=== PATIENT | male | born 1945 | race Caucasian/White ===

== ENCOUNTER 2016-11-27 01:05 | Inpatient (IN) | payer OTHER, MEDICARE ==
[~2016-11-27] VITALS: Ht 172.7 cm; Wt 80.7 kg
[~2016-11-27 01:05] MED LIST: CARDURA2 M1 PO; DULCOLAX5 M1 PO; FERROUS SULFAT325 M3 PO; FLOMAX0.4 M1 PO; FUROSEMIDE40 M1 PO; MIRTAZAPINE15 M2 PO; OMEPRAZOLE20 M2 PO; PERCOCET 10-321 EACH PO; REQUIP4 MG PO; SIMVASTATIN20 M2 PO; SPIRONOLACTONE25 M1 PO; TRAZODONE HCL50 M1 PO
--- NOTE | 2016-11-27 08:12 | Operative Report ---
Operative/Inv Procedure Report Surgery Date: 11/27/16 Name of Procedure: Right total knee arthroplasty Pre-Operative Diagnosis: Right knee primary osteoarthritis Post-Operative Diagnosis: Same Estimated Blood Loss: less than 50ml Surgeon/Population Health Manager: PHAN FREEMAN,Edenilson DE LA O Anesthesia: block Implants: Hortencia triathlon total knee system--size 4 femur, size 4 tibia, 11 mm cruciate retaining polyethylene, 29 patella Drains: None Specimens: Femoral, tibial, patellar bone Microbiology: Urine Tourniquet: 63 minutes Complications: None Condition: Stable Operative Indication: Patient is a 71-year-old man with a long history of right knee pain. He has severe symptoms. He has been diagnosed with severe end-stage osteoarthritis. He has severe patellofemoral disease and moderate medial and lateral tibiofemoral compartment disease. Conservative measures resulted in short-term improvement. Patient does spend a lot of time in the wheelchair due to the knee pain. He also has a history of a stroke. He states that after a cortisone injection he has significant relief to the point where he is able to walk. Since normal conservative measures were not providing significant relief he wanted to consider total knee arthroplasty. We discussed risks, benefits and expectations of the surgical procedure which included but were not limited to persistent knee pain, stiffness, need for subsequent surgery, infection, DVT, injury to blood vessel or nerve, anesthesia risks. He wished to proceed with surgical management. Patient does have a flexion contracture and is somewhat higher risk for nerve injury and this was explained. He also has a history of alcohol use but states that he does not have to drink every day. I did explain to him that this places him at somewhat higher risk for infection and other medical complications. he wish to proceed with total knee arthroplasty Operative/Procedure Note Note: Patient was brought to the operating room and transferred to the operating table. Once under appropriate anesthesia the right lower extremity was prepped and draped in standard fashion. Preoperative IV antibiotics were given prophylactically. Right lower extremity was elevated exsanguinated and tourniquet was inflated to 300 millimeters of pressure. Standard anterior incision was made for anticipated medial parapatellar approach. Incision was taken down sharply to the underlying retinaculum. The medial retinaculum was incised with a minimal extension into the quadriceps tendon. Osteophyte formations were noted in the patellofemoral compartment medial and lateral compartments. Osteophytes were excised. Patella was subluxed knee was flexed. Remnants of the anterior medial and lateral meniscal tissues were excised. Portion of the fat pad was excised to maximize visualization of the lateral compartment. ACL was excised. The drill was used to enter the intramedullary canal. The intramedullary femoral guide was impacted in place and the cutting block was pinned in position for 6 valgus cut. This cut was made. Soft tissues were protected. The femur was incised was size 4. Size 4 cuts were made while protecting the soft tissues. I then turned my attention to the tibia. The external tibial alignment guide was placed for a neutral cut from medial to lateral and reproducing patient's posterior slow-paced on preoperative templating and intraoperative findings. While the posterior soft tissues were protected with the PCL retractor the retractors placed medially and laterally. Tibial cut was made. Tibia was sized to a size 4. Trial components were inserted and the knee was taken through range of motion. Patella was then measured and the appropriate thickness was removed and restored with a 29 mm patella. Patellar tracking was noted to be tilted and slightly lateral this was expected based on patient's preoperative findings as well. A lateral release was performed from an extra articular side. I was satisfied with patellar femoral tracking after this release was completed. All trial component was removed. The tibia was completed with the tibial punch with the appropriate rotation which was previously marked. The 2 lug holes were drilled in the femur and then copious irrigation followed. Cement was being mixed on the back table. Once the cement was ready was applied to the dry clean bony surfaces of the tibia. The size 4 tibial component was impacted in place and excess cement was removed with curettes. Some was applied to the dry clean bony surfaces of the femur. The size 4 femoral component was impacted in place and excess cement was removed with curettes. An insert was applied and taken knee was taken out to full extension. Cement was applied to the dry clean bony surfaces of the patella. The size 29 patella was impacted in place and the excess cement was removed with a knife. As cement was drying and hardening I did appear articular pericapsular injection of ropivacaine with epinephrine and Toradol for postoperative pain and inflammation management. Once cement was hardening took the knee through range of motion. I was satisfied with the 11 mm cruciate retaining polyethylene insert. I removed the trial copious irrigation the tibial tray followed. I then inserted the definitive size 11 mm cruciate retaining polyethylene and the locking mechanism was confirmed. I made sure there was no soft tissue interpositioning. Knee was taken through range of motion. I was satisfied with the full extension. Mid flexion stability was very good. Full flexion to gravity. Copious irrigation followed tourniquet was deflated at 63 minutes. Hemostasis was obtained. I then every level of closure was followed by copious irrigation. The retinaculum and medial extension the quadriceps was closed with interrupted #1 Vicryl sutures. Subcutaneous tissues closed in 2 layers with 2-0 Vicryl and skin was closed running 3-0 Vicryl suture with the knee in flexion. Progestins were applied and patient was awakened and taken to recovery room in good condition. No intraoperative complications. Blood loss was approximately 50 mL Discharge Disposition: PACU
[2016-11-27 11:54] VITALS: BP 136/66
--- NOTE | 2016-11-27 13:46 | PN- Orthopedic ---
Subjective Subjective: POST-OP NOTE: No complaints. Currently getting out of bed with PT. Denies dizziness. No shortness of breath. No chest pains. Objective Vital Signs and I&Os Vital Signs Date Time Temp Pulse Resp B/P Pulse O2 O2 Flow FiO2 Ox Delivery Rate 11/27 1154 97.3 63 18 136/66 94 Room Air Intake & Output 11/27 1600 11/27 0800 11/27 0000 11/26 1600 11/26 0800 11/26 0000 Intake Total Output Total Balance Patient 178 lb Weight Physical Exam: General - alert & oriented x 3. comfortable. no acute distress. Lungs - clear bilaterally. no w/r/r. Cardiac - s1s2. reg. Abdomen - soft. nontender. Extremities - warm bilaterally. right leg dressing c/d/i. nvi. calves soft and nontender b/l. on q in place. Assessment/Plan Assessment/Plan This 71 year old white male with hx RLS, hx cva with right sided weakness, htn, hld, depression, hx lymes dz, is now POD#0 s/p right knee replacement for primary osteoarthritis advance diet as tolerated pain control as needed on q in place until POD#2 dressing change POD#2 abraham-operative vancomycin PT eval - already getting out of bed bowel regime ordered marshall to remain overnight, to be removed in the morning home meds appear to all be ordered f/u am labs d/c planning 2-3 days will d/w Core Measures/Miscellaneous Venous Thromboembolism VTE Risk Factors: Age > 40, Surgery VTE Contraindications: No Contraindications VTE Diagnosis: No Beta Moris Is Beta Moris a Home Med? No Antibiotics Is Patient on Antibiotics? Yes If Yes: prophylaxis
[2016-11-27 14:28] VITALS: BP 102/56
[2016-11-27 15:50] VITALS: BP 132/68
[2016-11-27 17:38] VITALS: BP 136/80
[2016-11-27 19:46] VITALS: BP 143/74
[2016-11-27 22:13] VITALS: BP 142/84
[2016-11-28 02:04] VITALS: BP 142/79
[2016-11-28 06:25] VITALS: BP 140/74
[2016-11-28 08:22] LABS: MEAN CORPUSCULAR HGB 30.7 PG (27.0-31.0); MEAN CORPUSCULAR HGB CONC 34.3 G/DL (33.0-37.0); MEAN CORPUSCULAR VOLUME 89.4 FL (80.0-94.0); MEAN PLATELET VOLUME 9.1 FL (7.4-10.4); PLATELET COUNT 185 /CUMM (130-400); RBC DISTRIBUTION WIDTH 12.7 % (11.5-14.5); RED BLOOD CELL CT 3.92 /CUMM (4.70-6.10); WHITE BLOOD CELL COUNT 10.5 /CUMM (4.8-10.8)
--- NOTE | 2016-11-28 08:22 | PN- Orthopedic ---
ANGEL GOMEZ 11/28/16 0816: Subjective Subjective: No overnight events. Continues to have postoperative knee pain. He reports that the pain is minimally controlled and requesting for a muscle relaxant. No nausea vomiting. Tolerating diet. Was able to work with physical therapy. Objective Vital Signs and I&Os Vital Signs Date Time Temp Pulse Resp B/P Pulse O2 O2 Flow FiO2 Ox Delivery Rate 11/28 0653 98.3 11/28 0625 99.0 76 20 140/74 95 11/28 0204 98.1 71 20 142/79 95 Room Air 11/27 2213 97.9 78 20 142/84 96 Room Air 11/27 1946 97.8 78 22 143/74 95 Room Air 11/27 1738 97.9 72 18 136/80 97 Room Air 11/27 1550 97.9 73 20 132/68 95 Room Air 11/27 1428 98.8 80 20 102/56 94 11/27 1154 97.3 63 18 136/66 94 Room Air Intake & Output 11/28 1600 11/28 0800 11/28 0000 11/27 1600 11/27 0800 11/27 0000 Intake Total 100 1800 Output Total 1800 1000 1350 Balance -1700 -1000 450 Intake, IV 1500 Intake, Oral 100 300 Output, Urine 1800 1000 1350 Patient 178 lb Weight Urine culture urine culture pending. Physical Exam: None apparent distress, alert oriented 3 resting and chair. Lung sounds clear to auscultate auscultated bilaterally. No additional sounds appreciated. Abdomen is soft ,nondistended, no rebound or guarding. Extremity: Right knee postoperative site is clean dry and intact with dressing .Above the knee the ON -q PUMP catheter in place. Right lower extremity palpable pulses are present. Current Medications: Current Medications Sig/Reina Start time Last Medication Dose Route Stop Time Status Admin Atorvastatin Calcium 10 MG 1700 11/27 1700 AC 11/27 PO 1617 Dextrose/Lactated 1,000 ML Q13H 11/27 1200 AC 11/28 Ringer's IV 0308 Diazepam 5 MG TID PRN 11/28 0030 AC 11/28 PO 0651 Docusate Sodium 100 MG BID 11/27 2200 AC 11/27 PO 2204 Docusate Sodium 100 MG DAILY NEEDED PRN 11/27 1200 DC PO Doxazosin Mesylate 2 MG QPM 11/27 2199 AC 11/27 PO 2204 Ferrous Sulfate 325 MG DAILY 11/28 1000 AC PO Furosemide 40 MG BID 11/27 2200 AC 11/27 PO 2204 Influenza Virus 0.5 ML ONCE ONE 11/27 1300 DC 11/27 Vaccine IM 11/27 1301 1617 Mirtazapine 15 MG QPM 11/27 2200 AC 11/27 PO 2204 Morphine Sulfate 2 MG Q3P PRN 11/27 1200 AC 11/28 IV 0308 Morphine Sulfate 4 MG Q3P PRN 11/27 1200 DC IV Omeprazole 20 MG DAILY 11/28 1000 AC PO Ondansetron HCl 4 MG Q6P PRN 11/27 1200 AC IV Oxycodone/ 1 TAB Q4P PRN 11/27 1200 AC Acetaminophen PO Oxycodone/ 2 TAB Q4P PRN 11/27 1200 AC 11/28 Acetaminophen PO 0651 Polyethylene Glycol 17 GM DAILY NEEDED PRN 11/27 1200 AC 11/27 PO 2204 Ropinirole HCl 1 MG AT BEDTIME 11/27 2200 AC 11/27 PO 1748 Ropivacaine 500 ML ONCE ONE 11/27 0930 DC ON-Q Ball 1 BAG INJ 11/29 0309 Senna/Docusate Sodium 2 TAB AT BEDTIME NEED.. 11/27 1200 AC PO Spironolactone 25 MG DAILY 11/28 1000 AC PO Tamsulosin HCl 0.4 MG DAILY 11/28 1000 AC PO Vancomycin HCl 1,000 MG ONCE ONE 11/27 1900 DC 11/27 Sodium Chloride 250 ML IV 11/27 1959 1751 Vancomycin HCl 1,000 MG ONCE 11/27 0000 DC Sodium Chloride 250 ML IV 11/27 2359 Warfarin Sodium 5 MG COUMADIN 1700 ONE 11/27 1700 DC 11/27 PO 11/27 1701 1617 Results Recent Imaging Studies: Pending right knee x-ray for tomorrow Assessment/Plan Assessment/Plan This 71 year old male POD#1 s/p right knee replacement for primary osteoarthritis. Postoperatively doing well except for pain control. pain control : We'll continue,on-Q, OXYCODONE AND VALIUM. D/Cvalium and start on soma for muscle spams. on q in place until POD#2 and d/c tommmorrow. dressing change tommorrow. PT eval - TO BE CONTINUED f/u am labs redose the COUMIDIN. Core Measures/Miscellaneous Venous Thromboembolism VTE Risk Factors: Age > 40, Surgery VTE Contraindications: No Contraindications VTE Diagnosis: No Beta Moris Is Beta Moris a Home Med? No Antibiotics Is Patient on Antibiotics? Yes If Yes: prophylaxis BETTY CHISHOLM MD 11/28/16 1441: Attending MD Review Statement Attending Statement Attending MD Statement: examined this patient, discuss w/resident/PA/NATIONAL ACCOUNT DIRECTOR Attending Assessment/Plan: Patient does have some spasm in his right lower extremity. This may be related to his previous stroke but if it is related to his surgery then it should resolve with time as well as the muscle relaxants was provided. Vital signs stable Dressings clean and dry Neuro intact distally Status post right total knee arthroplasty for primary right knee osteoarthritis PT/rehabilitation Coumadin per INR
[2016-11-28 08:30] LABS: ABSOLUTE BASOPHIL COUNT 0 /CUMM (0.0-0.2); ABSOLUTE EOSINOPHIL COUNT 0 /CUMM (0.0-0.7); ABSOLUTE GRANULOCYTE CT 7.9 /CUMM (1.4-6.5); ABSOLUTE LYMPH COUNT 1.6 /CUMM (1.2-3.4); ABSOLUTE MONOCYTE COUNT 0.9 /CUMM (0.10-0.60); BASOPHIL % 0.4 % (0.0-2.0); EOSINOPHIL % 0.2 % (0-5); GRANULOCYTE % 75.3 % (42.2-75.2)
[2016-11-28 08:32] LABS: PT 11.8 SEC (9.4-12.5)
[2016-11-28 15:50] VITALS: BP 112/68
[2016-11-28 21:49] VITALS: BP 144/68
[2016-11-29 06:19] VITALS: BP 140/58
[2016-11-29 08:32] LABS: PT 14.6 SEC (9.4-12.5)
[2016-11-29 10:39] LABS: ABSOLUTE BASOPHIL COUNT 0 /CUMM (0.0-0.2); ABSOLUTE EOSINOPHIL COUNT 0.1 /CUMM (0.0-0.7); ABSOLUTE GRANULOCYTE CT 6.7 /CUMM (1.4-6.5); ABSOLUTE LYMPH COUNT 1.2 /CUMM (1.2-3.4); ABSOLUTE MONOCYTE COUNT 0.9 /CUMM (0.10-0.60); BASOPHIL % 0.3 % (0.0-2.0); EOSINOPHIL % 0.7 % (0-5); GRANULOCYTE % 75.9 % (42.2-75.2); HEMATOCRIT 33.8 % (42-52); MEAN CORPUSCULAR HGB 30.8 PG (27.0-31.0); MEAN CORPUSCULAR HGB CONC 34.9 G/DL (33.0-37.0); MEAN CORPUSCULAR VOLUME 88.2 FL (80.0-94.0); MEAN PLATELET VOLUME 9.6 FL (7.4-10.4); PLATELET COUNT 189 /CUMM (130-400); RBC DISTRIBUTION WIDTH 12.6 % (11.5-14.5); RED BLOOD CELL CT 3.83 /CUMM (4.70-6.10); WHITE BLOOD CELL COUNT 8.9 /CUMM (4.8-10.8)
--- NOTE | 2016-11-29 11:09 | PN- Orthopedic ---
ANGEL GOMEZ 11/29/16 1108: Subjective Subjective: No overnight events. Continues to have postoperative knee pain. He reports that he is not ready to leave today. No nausea vomiting. Tolerating diet. Was able to work with physical therapy.Reports his knee pain is better with the muscle relaxant. Objective Vital Signs and I&Os Vital Signs Date Time Temp Pulse Resp B/P Pulse O2 O2 Flow FiO2 Ox Delivery Rate 11/29 1015 76 140/58 11/29 0619 98.0 76 20 140/58 95 Room Air 11/28 2149 98.2 80 21 144/68 96 Room Air 11/28 1550 98.0 81 18 112/68 96 Intake & Output 11/29 1600 11/29 0800 11/29 0000 11/28 1600 11/28 0800 11/28 0000 Intake Total 510 395 100 Output Total 350 647 997 1329 1000 Balance 160 -450 -105 -1700 -1000 Intake, IV 30 95 Intake, Oral 480 300 100 Number 0 0 Bowel Movements Output, Urine 350 967 551 8205 1000 urine culture : negative growth. Physical Exam: Not in apparent distress, alert oriented 3 resting and chair. Lung sounds clear to auscultate auscultated bilaterally. No additional sounds appreciated. Abdomen is soft ,nondistended, no rebound or guarding. Extremity: Right knee postoperative site is clean dry and intact with dressing .Above the knee the previously palced on -Q pump catheter is removed anddressing is applied. Right lower extremity palpable pulses are present. post op dressing in the Right knee is removed: postive edema secondary to post op , there is a blanching erythema and warmth at [facility] psot op site with rebeca intact.NO drainage from the incision site.he is also unabel to extend the leg completely. Assessment/Plan Assessment/Plan This 71 year old male POD#2 s/p right knee replacement for primary osteoarthritis. Postoperatively doing well. pain control :appears comfortabel will continue current regimen.Also recommend to continue heat/cold thearpy. F/u on the x-ray. will start on antibiotics secondary to the erythema at the post op site upon d/w attending. PT eval - TO BE CONTINUED f/u am labs redose the COUMIDIN. Core Measures/Miscellaneous Venous Thromboembolism VTE Risk Factors: Age > 40, Surgery VTE Contraindications: No Contraindications VTE Diagnosis: No Beta Moris Is Beta Moris a Home Med? No Antibiotics Is Patient on Antibiotics? Yes If Yes: prophylaxis PHAN FREEMAN,[facility] 11/29/16 1259: Objective Vital Signs and I&Os Vital Signs Date Time Temp Pulse Resp B/P Pulse O2 O2 Flow FiO2 Ox Delivery Rate 11/29 1015 76 140/58 11/29 0619 98.0 76 20 140/58 95 Room Air 11/28 2149 98.2 80 21 144/68 96 Room Air 11/28 1550 98.0 81 18 112/68 96 Intake & Output 11/29 1600 11/29 0800 11/29 0000 11/28 1600 11/28 0800 11/28 0000 Intake Total 510 395 100 Output Total 350 629 156 8261 1000 Balance 160 -450 -105 -1700 -1000 Intake, IV 30 95 Intake, Oral 480 300 100 Number 0 0 Bowel Movements Output, Urine 350 205 280 0106 1000 Physical Exam: incision clean and dry calf soft warmth to touch mild diffuse erythema 30-90 degrees Assessment/Plan Assessment/Plan s/p TKR patient has had history of muscle spasm which may be related to stroke history but he had full extension yesterday and intraop. continue muscle relaxant and increase mobilization-encourage extension exercises ice to knee home likely tomorrow
[2016-11-29 14:42] VITALS: BP 102/64
--- NOTE | 2016-11-29 16:34 | RADIOLOGY REPORT ---
EXAMINATION: XR KNEE, RIGHT CLINICAL INFORMATION: Status post right total knee arthroplasty. COMPARISON: Right knee films dated 02/16/2016. TECHNIQUE: Four views of the right knee. FINDINGS: The patient is status post total right knee arthroplasty. The prosthetic components are in anatomic alignment and are intact. No hardware failure is seen. There is some nonspecific lucency seen underlying the medial femoral condylar component of the prosthesis. The [place] bones are intact. Small suprapatellar knee joint effusion is seen. No significant joint calcifications are noted. IMPRESSION: 1. No acute fracture, dislocation or hardware failure status post total right knee arthroplasty. 2. Mild lucency of the medial femoral condyle, underlying the prosthesis. This is a nonspecific finding. 3. Small suprapatellar knee joint effusion.
[2016-11-29 23:05] VITALS: BP 127/62
[2016-11-30 06:39] VITALS: BP 127/63
[2016-11-30 08:21] LABS: ABSOLUTE BASOPHIL COUNT 0 /CUMM (0.0-0.2); ABSOLUTE EOSINOPHIL COUNT 0.2 /CUMM (0.0-0.7); ABSOLUTE LYMPH COUNT 1.6 /CUMM (1.2-3.4); ABSOLUTE MONOCYTE COUNT 0.5 /CUMM (0.10-0.60); BASOPHIL % 0.5 % (0.0-2.0); EOSINOPHIL % 2.3 % (0-5); GRANULOCYTE % 67.7 % (42.2-75.2); HEMATOCRIT 34.4 % (42-52); MEAN CORPUSCULAR HGB CONC 34.9 G/DL (33.0-37.0); MEAN CORPUSCULAR VOLUME 88.6 FL (80.0-94.0); MEAN PLATELET VOLUME 9.5 FL (7.4-10.4); PLATELET COUNT 189 /CUMM (130-400); RBC DISTRIBUTION WIDTH 12.8 % (11.5-14.5); RED BLOOD CELL CT 3.88 /CUMM (4.70-6.10); WHITE BLOOD CELL COUNT 7.4 /CUMM (4.8-10.8)
[2016-11-30 10:09] LABS: PT 15.6 SEC (9.4-12.5)
--- NOTE | 2016-11-30 10:52 | PN- Orthopedic ---
Subjective Subjective: Patient without significant complaints. No fever no flulike illness. Pain is controlled. He feels well overall. He has been out of bed with physical therapy. per physical therapist, he has lost some extension. Objective Vital Signs and I&Os Vital Signs Date Time Temp Pulse Resp B/P Pulse O2 O2 Flow FiO2 Ox Delivery Rate 12/01 0733 117/62 11/30 0639 97.8 74 20 127/63 96 Room Air 11/29 2305 98.1 76 18 127/62 95 Room Air 11/29 1442 98.4 85 20 102/64 95 Intake & Output 11/30 1600 11/30 0800 11/30 0000 11/29 1600 11/29 0800 11/29 0000 Intake Total 600 480 800 510 Output Total 300 350 450 Balance 600 480 500 160 -450 Intake, IV 30 Intake, Oral 600 480 800 480 Number 0 Bowel Movements Output, Urine 300 350 450 Physical Exam: Well-developed well-nourished no apparent distress. HEENT: Atraumatic, extraocular motion intact Neck: Supple, no lymphadenopathy Respiratory: No respiratory distress Extremities: No edema RIGHT lower extremity dressing in place, Incision line is clean dry and intact with minimal bloody drainage. Mild marginal erythema, mostly mid to proximal part of incision and laterally, there is wrinkling of the skin, erythema is improved from yesterday per patient.. Mild joint effusion Range of motion is 25-90 Neurovascularly intact distally Bilateral calves are supple, nontender. Neuro: Alert and oriented x3 Psych: Mood affect normal, normal memory normal judgment. Skin: Warm and dry, no rash on exposed skin Results Last 48 Hours of Labs: Laboratory Tests 11/30 11/30 0852 0740 Coagulation PT (9.4 - 12.5 SEC) 15.6 H INR (0.90 - 1.17) 1.49 H Hematology CBC w Diff NO MAN DIFF REQ WBC (4.8 - 10.8 /CUMM) 7.4 RBC (4.70 - 6.10 /CUMM) 3.88 L Hgb (14.0 - 18.0 G/DL) 12.0 L Hct (42 - 52 %) 34.4 L MCV (80.0 - 94.0 FL) 88.6 MCH (27.0 - 31.0 PG) 31.0 RDW (11.5 - 14.5 %) 12.8 Plt Count (130 - 400 /CUMM) 189 MPV (7.4 - 10.4 FL) 9.5 Gran % (42.2 - 75.2 %) 67.7 Lymphocytes % (20.5 - 51.1 %) 22.0 Monocytes % (1.7 - 9.3 %) 7.5 Eosinophils % (0 - 5 %) 2.3 Basophils % (0.0 - 2.0 %) 0.5 Absolute Granulocytes (1.4 - 6.5 /CUMM) 5.0 Absolute Lymphocytes (1.2 - 3.4 /CUMM) 1.6 Absolute Monocytes (0.10 - 0.60 /CUMM) 0.5 Absolute Eosinophils (0.0 - 0.7 /CUMM) 0.2 Absolute Basophils (0.0 - 0.2 /CUMM) 0 PUBS MCHC (33.0 - 37.0 G/DL) 34.9 04/12 04/12 0945 0700 Coagulation PT (9.4 - 12.5 SEC) 14.6 H INR (0.90 - 1.17) 1.40 H Hematology CBC w Diff NO MAN DIFF REQ WBC (4.8 - 10.8 /CUMM) 8.9 RBC (4.70 - 6.10 /CUMM) 3.83 L Hgb (14.0 - 18.0 G/DL) 11.8 L Hct (42 - 52 %) 33.8 L MCV (80.0 - 94.0 FL) 88.2 MCH (27.0 - 31.0 PG) 30.8 RDW (11.5 - 14.5 %) 12.6 Plt Count (130 - 400 /CUMM) 189 MPV (7.4 - 10.4 FL) 9.6 Gran % (42.2 - 75.2 %) 75.9 H Lymphocytes % (20.5 - 51.1 %) 13.4 L Monocytes % (1.7 - 9.3 %) 9.7 H Eosinophils % (0 - 5 %) 0.7 Basophils % (0.0 - 2.0 %) 0.3 Absolute Granulocytes (1.4 - 6.5 /CUMM) 6.7 H Absolute Lymphocytes (1.2 - 3.4 /CUMM) 1.2 Absolute Monocytes (0.10 - 0.60 /CUMM) 0.9 H Absolute Eosinophils (0.0 - 0.7 /CUMM) 0.1 Absolute Basophils (0.0 - 0.2 /CUMM) 0 PUBS MCHC (33.0 - 37.0 G/DL) 34.9 Assessment/Plan Assessment/Plan Postop day #3 status post right total knee arthroplasty -Labs this morning are stable -Wound redness is resolving -Per physical therapy, they would recommend continued care home facility due to gait trouble and lack of extension -Continue current pain medication regimen -Continue Coumadin dose per INR for DVT prophylaxis -Transfer to care home facility today Core Measures/Miscellaneous Venous Thromboembolism VTE Risk Factors: Age > 40, Surgery VTE Contraindications: No Contraindications VTE Diagnosis: No Beta Moris Is Beta Moris a Home Med? No Antibiotics Is Patient on Antibiotics? Yes If Yes: prophylaxis
[2016-11-30] MEDS ORDERED: SOMA350 M1 PO (11:03)
[2016-11-30] MEDS ORDERED: COUMADIN5 M2 PO (11:04)
--- NOTE | 2016-11-30 11:10 | Patient Discharge Instructions ---
Discharge Instructions General Discharge Information You were seen/treated for: Primary unilateral right knee osteoarthritis You had these procedures: Right total knee arthroplasty Special Instructions: Follow-up with your doctor in 7-10 days. Call the office with any concerns of fever greater than 101.5. Large amounts of discharge or drainage from the wound or inability to bear weight on your operative side. The steri strips will fall off on their own You may weight-bear as tolerated. Activity as tolerated. Range of motion as tolerated. Do not put pillows behind the knee, use a pillow under the heel to ensure your are in full knee extension. Keep the dressing dry as possible, you may shower with the dressing in place however, do not take a bath or submerge the wound in water as this will increase your chance of infection. Change the dressings after the shower. You may use dry gauze and tape or large Band-Aids Do not apply any ointments to the wound. Due to a risk of blood clots you'll need to be on coumadin for the next 4-6 weeks Take pain medication as directed. Apply ice as needed for 20 minutes every hour for the first few days. Please take Colace and/or MiraLAX [id number] to avoid constipation while you're on narcotic pain medication. Diet Continue normal diet: Yes Activity Activity Self Limited: Yes Pounds, do NOT lift more than: 10 Additional ACTIVITY Info: Work on knee range of motion, continue to try to get to full extension and flexion as much as possible. Acute Coronary Syndrome Inclusion Criteria At DC or during hospital stay patient has or had the following: ACS DIAGNOSIS No Discharge Core Measures Meds if any: Prescribed or Continued at Discharge Meds if any: NOT Prescribed or Continued at Discharge Congestive Heart Failure Inclusion Criteria At DC or during hospital stay patient has or had the following: CHF DIAGNOSIS No Discharge Core Measures Meds if any: Prescribed or Continued at Discharge Meds if any: NOT Prescribed or Continued at Discharge Cerebrovascular accident Inclusion Criteria At DC or during hospital stay patient has or had the following: CVA/TIA Diagnosis No Discharge Core Measures Meds if any: Prescribed or Continued at Discharge Meds if any: NOT Prescribed or Continued at Discharge Venous thromboembolism Inclusion Criteria VTE Diagnosis No VTE Type NONE VTE Confirmed by (Test) NONE Discharge Core Measures - Per Current guidelines, there needs to be overlap - treatment for the first 5 days of Warfarin therapy. - If discharged on Warfarin prior to 5 days of - overlap therapy, the patient will need to be - assessed for post discharge needs including - *Post discharge parental anticoagulation - *Warfarin and/or parental anticoagulation education - *Follow up date to check INR post discharge At least 5 days overlap therapy as Inpatient No Meds if any: Prescribed or Continued at Discharge Warfarin Yes Overlap Therapy No Note: Overlap Therapy is Warfarin and Anticoagulant Meds if any: NOT Prescribed or Continued at Discharge
--- NOTE | 2016-11-30 11:13 | Surgical Discharge Summary ---
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 Home Who Do You Live With? Spouse What is Your Primary Language? Mozambican Review of Systems: see h&p Hospital Course Course Attending Physician: PHAN FREEMANJAIRON Primary Care Physician: MITCHELL FREEMAN,[facility] Course: Patient was admitted for elective right total KNEE replacement secondary to osteoarthritis. The patient tolerated the procedure well without complications. There were given antibiotics for infectious prophylaxis The patient was placed on DVT prophylaxis. Coumadin started Postoperatively the patient was monitored and tolerated by mouth intake, vital signs are stable, afebrile. Pain was well-controlled. Evaluated by physical therapy and recommended he stay in short-term rehabilitation facility Plan is to follow up as scheduled and instructed to call with any questions or concerns Complications: None Allergies: Coded Allergies: bee venom protein (honey bee) (UNKNOWN 11/28/16) Disposition Summary Disposition Principal Diagnosis: Primary right knee unilateral osteoarthritis Additional Diagnosis: None Discharge Disposition: SNF Discharge Instructions General Discharge Information Code Status: Full Code Patient's Diet: Regular diet Patient's Activity: Ambulate as tolerated, work on range of motion, extension and flexion Follow-Up Instructions/Appts: Follow-up with your surgeon in 7-10 days Call the office with any concerns of fever greater than 101.5. Large amounts of discharge or drainage from the wound or inability to bear weight on your operative side. You may weight-bear as tolerated. Activity as tolerated. Range of motion as tolerated. Do not put pillows behind the knee, use a pillow under the heel to ensure your are in full knee extension. Keep the dressing dry as possible, you may shower with the dressing in place however, do not take a bath or submerge the wound in water as this will increase your chance of infection. Change the dressings after the shower. You may use dry gauze and tape or large Band-Aids Do not apply any ointments to the wound. Due to a risk of blood clots you'll need to be on coumadin for the next 4-6 weeks , dose based on your INR. Take pain medication as directed. Apply ice as needed for 20 minutes every hour for the first few days. Please take Colace and/or MiraLAX [id number] to avoid constipation while you're on narcotic pain medication. Medications at Discharge Discharge Medications: Continue taking these medications: Oxycodone HCl/Acetaminophen (Percocet 10-325 MG Tablet) 10 MG-325 MG TABLET 1 Tablet ORAL 4 TIMES A DAY Ropinirole HCl (Requip) 4 MG TABLET 1 Tablet ORAL Every night Furosemide (Furosemide) 40 MG TABLET 1 Tablet ORAL TWICE DAILY Omeprazole (Omeprazole) 20 MG CAPSULE.DR 1 Capsule ORAL DAILY Simvastatin (Simvastatin*) 20 MG TABLET 1 Tablet ORAL Every night Doxazosin Mesylate (Cardura) 2 MG TABLET 1 Tablet ORAL Every night Mirtazapine (Mirtazapine) 15 MG TABLET 1 Tablet ORAL Every night Spironolactone (Spironolactone) 25 MG TABLET 1 Tablet ORAL DAILY Trazodone HCl (Trazodone HCl) 50 MG TABLET 1 Tablet ORAL Every night Tamsulosin HCl (Flomax) 0.4 MG CAP.ER.24H 1 Capsule ORAL DAILY Ferrous Sulfate (Ferrous Sulfate) 325 MG (65 MG IRON) TABLET 1 Tablet ORAL DAILY Bisacodyl (Dulcolax) 5 MG TABLET. 2 Tablet ORAL GIVE ONCE Start taking the following new medications: Carisoprodol (SOMA) 350 MG TABLET 350 Milligram ORAL THREE TIMES DAILY as needed for SPASMS Qty = 30 No Refills Warfarin Sodium (Coumadin) 5 MG TABLET 1 Tablet ORAL As Directed Qty = 30 No Refills Instructions: DOSE PER INR BETWEEN 2-3 Copies To: MITCHELL FREEMAN,FAREED
[2016-11-30 14:37] VITALS: BP 122/76
[2016-11-30 21:50] VITALS: BP 118/70
[2016-11-30 22:59] VITALS: BP 118/66
[2016-12-01 07:37] VITALS: BP 112/66
--- NOTE | 2016-12-01 08:12 | PN- Orthopedic ---
Subjective Subjective: Reports some spasms behind both knees, with apparently was a pre-op problem. Incisional pain seems controlled. Discharge to short term rehab cancelled yesterday because there apparently wasn't a bed available. He's tolerating his diet. Out of bed with PT. Voiding well. +bm. Objective Vital Signs and I&Os Vital Signs Date Time Temp Pulse Resp B/P Pulse O2 O2 Flow FiO2 Ox Delivery Rate 12/01 0737 98.0 72 20 112/66 96 Room Air 11/30 2259 97.6 73 20 118/66 94 Room Air 11/30 2150 118/70 11/30 1437 98.8 68 20 122/76 95 Room Air 11/30 1117 Room Air 11/30 0833 117/62 Intake & Output 12/01 1600 12/01 0800 12/01 0000 11/30 1600 11/30 0800 11/30 0000 Intake Total 450 480 600 480 Output Total 250 800 Balance -250 450 -320 600 480 Intake, Oral 450 480 600 480 Output, Urine 250 800 Physical Exam: General - alert & oriented x 3. comfortable. out of bed to chair. no acute distress. Lungs - clear bilaterally. no w/r/r. Cardiac - s1s2. Abdomen - soft. nontender. Extremities - warm bilaterally. dressing changed, right knee. incision approximated with steri strips. no erythema or exudates. calves soft and nontender. Assessment/Plan Assessment/Plan This 71 year old male with hx htn, hld, gerd, bph, is POD#4 s/p right tkr pain controlled tolerating diet dressing changed f/u labs coumadin accordingly - dvt ppx continue PT d/c to str today. apparently bed not available yesterday. will d/w Core Measures/Miscellaneous Venous Thromboembolism VTE Risk Factors: Age > 40, Surgery VTE Contraindications: No Contraindications VTE Diagnosis: No Beta Moris Is Beta Moris a Home Med? No Antibiotics Is Patient on Antibiotics? Yes If Yes: prophylaxis
[2016-12-01 09:14] LABS: PT 20.6 SEC (9.4-12.5)
[2016-12-01 09:22] LABS: ABSOLUTE BASOPHIL COUNT 0 /CUMM (0.0-0.2); ABSOLUTE EOSINOPHIL COUNT 0.1 /CUMM (0.0-0.7); ABSOLUTE GRANULOCYTE CT 4.2 /CUMM (1.4-6.5); ABSOLUTE LYMPH COUNT 1.6 /CUMM (1.2-3.4); ABSOLUTE MONOCYTE COUNT 0.4 /CUMM (0.10-0.60); BASOPHIL % 0.6 % (0.0-2.0); EOSINOPHIL % 2.2 % (0-5); GRANULOCYTE % 65.6 % (42.2-75.2); MEAN CORPUSCULAR HGB 30.7 PG (27.0-31.0); MEAN CORPUSCULAR HGB CONC 34.5 G/DL (33.0-37.0); MEAN CORPUSCULAR VOLUME 88.9 FL (80.0-94.0); PLATELET COUNT 202 /CUMM (130-400); RBC DISTRIBUTION WIDTH 12.9 % (11.5-14.5); RED BLOOD CELL CT 3.71 /CUMM (4.70-6.10); WHITE BLOOD CELL COUNT 6.4 /CUMM (4.8-10.8)
[2016-12-01 10:47] VITALS: BP 112/66
== END 2016-12-01 11:05 | DRG 470 ==
LOC: ENRESERVTM → ENRESERVDT → SDA 01:05 → DELPENDDIS 01:05 → ENPENDDIS 01:05 → 2NB 01:05
PROVIDERS: Nurse Practitioner; Physician Assistant; Physician Assistant Surgical; ADMIT Orthopaedic Surgery
PROC: 0SRC0J9 Replacement of Right Knee Joint with Synthetic Substitute, Cemented, Open Approach (ICD-10-PCS; principal; 2016-11-27)
DX: M17.11 Unilateral primary osteoarthritis, right knee (principal); I69.351 Hemiplegia and hemiparesis following cerebral infarction affecting right dominant side; I10 Essential (primary) hypertension; E78.5 Hyperlipidemia, unspecified; K21.9 Gastro-esophageal reflux disease without esophagitis; N40.0 Benign prostatic hyperplasia without lower urinary tract symptoms; G25.81 Restless legs syndrome
CPT/HCPCS: 2NSBP; 36415; 73560-RT; 82436; 87086; 88305; 90662; 97110-GO; 97116-GO; 97161-GP; 97530-GO; C1713; J0131; J0171; J1885; J2795; J3360; J3370; J7040

== ENCOUNTER 2017-08-27 12:49 | Inpatient (IN) | payer OTHER ==
[~2017-08-27] VITALS: Ht 172.7 cm; Wt 72.6 kg
[~2017-08-27 12:49] MED LIST changes: +COUMADIN5 M2 PO; +ELIQUIS2.5 M1 PO; +HYDROMORPHONE HC2 M1 PO; +SOMA350 M1 PO
--- NOTE | 2017-08-27 17:17 | Operative Report ---
Operative/Inv Procedure Report Surgery Date: 08/27/17 Name of Procedure: Left quadricep tendon repair Pre-Operative Diagnosis: Left quadricep tendon tear Post-Operative Diagnosis: Same Estimated Blood Loss: less than 50ml Surgeon/Reverser: Beverly FREEMAN,Balbir Sams Anesthesia: laryngeal mask airway Drains: None Specimens: None Tourniquet: 51 minutes Complications: None Condition: Stable Operative Indication: Patient is a 72-year-old man who has a history of a fall approximately 3 weeks ago and sustained a hyperflexion to the left knee. 6 weeks prior to that he had a total knee arthroplasty and was rehabilitating very well. After the fall he developed inability to extend his knee. He was evaluated and was found to have findings consistent with disruption of the extensor mechanism. However patient does have a complicated history of flexion contractures prior to his total knee arthroplasties and examination was difficult. Therefore further imaging was done which included ultrasound. Other imaging techniques would not be as reliable due to the presence of the total knee arthroplasty. Examination findings remain consistent with quadriceps tendon disruption and the ultrasound was not definite but enough information to proceed with recommendation of a quadriceps tendon repair. We discussed risks benefits and expectations of surgical management as well as nonsurgical management. This included but was not limited to persistent knee pain, weakness, need for subsequent surgery, infection, DVT, anesthesia risks. Patient wished to proceed with surgical management. Operative/Procedure Note Note: Patient was brought to the operating room and transferred to the operating table. Once under appropriate anesthesia the left lower extremity was prepped and draped in standard fashion. Preoperative IV antibiotic's were given prophylactically the most superior portion of the total knee arthroplasty incision was used and the incision was taken down sharply to the underlying quadriceps tendon and retinaculum. There was some scar tissue that needed to be dealt with and the interval between the retinaculum and the subcutaneous tissue was developed around the confirmed quadricep tendon tear there was a complete disruption of the quadriceps tendon. Retinacular tissues appeared to be relatively intact. Copious irrigation followed a large hematoma was evacuated. I also evaluated the polyethylene of the patella and the main polyethylene component the locking mechanism was secure and intact there was no evidence of any abnormalities of the total knee arthroplasty. Copious irrigation of the quadriceps defect was then completed. I then passed 2 FiberWire sutures #2 through the quadriceps tendon as a tendon stitch and then passed the 4 sutures through 2 drill holes through the patella which were superficial to the patellar component polyethylene pegs. I was satisfied with the position of these drill holes. I passed the sutures through the drill holes using a Hewson suture passer. I eliminate soft tissue bridging and then tied the sutures appropriately distal to the patella with the leg in extension. I was satisfied with the repair. I was able to take the knee into flexion to about 90 with no tension on the repair. Copious irrigation of the knee followed. I then reinforced the repair. Copious irrigation followed every level closure 2-0 Vicryl was used to close subcutaneous case tissue and skin was closed with rebeca. Appropriate dressings were applied and patient was awakened and taken the recovery room in good condition. No intraoperative complications. Blood loss was minimal. Tourniquet time 51 minutes Discharge Disposition: PACU
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
--- NOTE | 2017-08-27 21:11 | PN- Orthopedic ---
Subjective Subjective: POSTOP CHECK some pain, controlled w meds. no oob yet, await pt eval in am. no n/v/cp/sob. +void postop. tolerating diet Objective Vital Signs and I&Os Vital Signs Date Time Temp Pulse Resp B/P B/P Pulse O2 O2 Flow FiO2 Mean Ox Delivery Rate 08/27 2218 124/64 Physical Exam: GEN-nad CARD-s1s2 rrr PULM- ctab EXT- LLE: dressing cdi, ki in place, gross motor/sensory intact ankle & foot, palp dp. Assessment/Plan Assessment/Plan A- POD0 SP L quad tendon repair, stable w minimal postop pain P- prn pain meds diet as tolerated asa 325bid pt, ttwb knee immobilizer at all times medicine consult for comanagement continue in observation Core Measures Venous Thromboembolism VTE Risk Factors Surgery No Mechanical VTE Prophylaxis d/t N/A MechProphylax Ordered No VTE Pharm Prophylaxis d/t NA PharmProphylax ordered
[2017-08-27 22:00] VITALS: BP 124/62
[2017-08-28 00:27] LABS: ABSOLUTE BASOPHIL COUNT 0 /CUMM (0.0-0.2); ABSOLUTE EOSINOPHIL COUNT 0.1 /CUMM (0.0-0.7); ABSOLUTE GRANULOCYTE CT 4.8 /CUMM (1.4-6.5); ABSOLUTE LYMPH COUNT 1.2 /CUMM (1.2-3.4); ABSOLUTE MONOCYTE COUNT 0.4 /CUMM (0.10-0.60); BASOPHIL % 0.7 % (0.0-2.0); EOSINOPHIL % 1.6 % (0-5); HEMATOCRIT 31.5 % (42-52); MEAN CORPUSCULAR HGB 30.8 PG (27.0-31.0); MEAN CORPUSCULAR VOLUME 90.6 FL (80.0-94.0); MEAN PLATELET VOLUME 8.7 FL (7.4-10.4); PLATELET COUNT 253 /CUMM (130-400); RBC DISTRIBUTION WIDTH 12.7 % (11.5-14.5); RED BLOOD CELL CT 3.48 /CUMM (4.70-6.10); WHITE BLOOD CELL COUNT 6.5 /CUMM (4.8-10.8)
[2017-08-28 00:50] VITALS: BP 134/62
[2017-08-28 05:49] VITALS: BP 134/68
[2017-08-28 06:18] VITALS: BP 134/68
--- NOTE | 2017-08-28 07:41 | PN- Orthopedic ---
See Addendum Subjective Subjective: No acute events overnight. Orthopedically he is doing well. No fever no flulike illness Objective Vital Signs and I&Os Vital Signs Date Time Temp Pulse Resp B/P B/P Pulse O2 O2 Flow FiO2 Mean Ox Delivery Rate 08/28 0618 98.4 84 20 134/68 95 08/28 0549 98.4 84 20 134/68 95 08/28 0050 98.9 90 20 134/62 95 08/27 2218 124/64 08/27 2200 98.2 65 18 124/62 94 Room Air Intake & Output 08/28 0000 08/27 1600 08/27 0000 08/26 1600 Intake Total 740 240 Output Total 500 200 Balance 240 40 Intake, IV 500 Intake, Oral 240 240 Output, Urine 500 200 Patient 160 lb Weight Physical Exam: Well-developed well-nourished no apparent distress. HEENT: Atraumatic, extraocular motion intact Neck: Supple, no lymphadenopathy Respiratory: No respiratory distress Extremities: No edema LEFT lower extremity dressing in place, Knee immobilizer in place Compression wrap in place. ALPS in place Neurovascularly intact distally Bilateral calves are supple, nontender. Neuro: Alert and oriented x3 Psych: Mood affect normal, normal memory normal judgment. Skin: Warm and dry, no rash on exposed skin Results Last 48 Hours of Labs: Laboratory Tests 08/28 08/27 0625 2332 Chemistry Sodium (137 - 145 mmol/L) 143 Potassium (3.5 - 5.1 mmol/L) 3.9 Chloride (98 - 107 mmol/L) 107 Carbon Dioxide (22 - 30 mmol/L) 26 Anion Gap (5 - 16) 10 BUN (9 - 20 mg/dL) 12 Creatinine (0.7 - 1.2 mg/dL) 1.1 Estimated GFR (>60 ml/min) > 60 BUN/Creatinine Ratio (7 - 25 %) 10.9 Phosphorus (2.5 - 4.5 mg/dL) 3.5 Magnesium (1.6 - 2.3 mg/dL) 2.0 TSH (0.270 - 4.200 uIU/mL) 0.716 Hematology CBC w Diff NO MAN DIFF REQ WBC (4.8 - 10.8 /CUMM) 6.5 RBC (4.70 - 6.10 /CUMM) 3.48 L Hgb (14.0 - 18.0 G/DL) 10.7 L Hct (42 - 52 %) 31.5 L MCV (80.0 - 94.0 FL) 90.6 MCH (27.0 - 31.0 PG) 30.8 RDW (11.5 - 14.5 %) 12.7 Plt Count (130 - 400 /CUMM) 253 MPV (7.4 - 10.4 FL) 8.7 Gran % (42.2 - 75.2 %) 73.0 Lymphocytes % (20.5 - 51.1 %) 19.1 L Monocytes % (1.7 - 9.3 %) 5.6 Eosinophils % (0 - 5 %) 1.6 Basophils % (0.0 - 2.0 %) 0.7 Absolute Granulocytes (1.4 - 6.5 /CUMM) 4.8 Absolute Lymphocytes (1.2 - 3.4 /CUMM) 1.2 Absolute Monocytes (0.10 - 0.60 /CUMM) 0.4 Absolute Eosinophils (0.0 - 0.7 /CUMM) 0.1 Absolute Basophils (0.0 - 0.2 /CUMM) 0 PUBS MCHC (33.0 - 37.0 G/DL) 34.0 Toxicology Urine Opiates Screen (>2000 NG/ML) 222.00 Methadone Screen (>300 NG/ML) < 40 Barbiturate Screen (>200 NG/ML) < 60 Ur Phencyclidine Scrn (>25 NG/ML) < 6.00 Amphetamines Screen (>1000 NG/ML) < 100 U Benzodiazepines Scrn (>200 NG/ML) > 800 H Urine Cocaine Screen (>300 NG/ML) < 50 Urine Cannabis Screen (>50 NG/ML) < 5.00 Assessment/Plan Assessment/Plan Postop day 1 status post left knee quadriceps tendon repair secondary to rupture from fall 6 weeks postop left total knee arthroplasty prn pain meds diet as tolerated asa 325bid pt, ttwb knee immobilizer at all times medicine following continue in observation, likely needs snf for rehab, will dw case management. Core Measures Venous Thromboembolism VTE Risk Factors Surgery No Mechanical VTE Prophylaxis d/t N/A MechProphylax Ordered No VTE Pharm Prophylaxis d/t NA PharmProphylax ordered
--- NOTE | 2017-08-28 07:43 | PN- Student ---
Srini Mg 08/28/17 0736: Subjective Subjective: Kit is a 72yo Caucasain male post op day 1 s/p left quad tendon repair. He was sleeping upon entering the room, arousable, but refusing to answer questions at this time and continues to fall asleep during exam. Patient will be reevaluated later in the day. Objective Objective: GENERAL: Patient lying supine in bed. Undressed/no blankets from waist up. Patient is arousable but insists on sleeping and does not answer this writers questions. RESP: good respiratory effort, CTAB CARDIO: RRR, no M/R/G, S1&S2 audible thorughout ABD: Soft, nontender, nondistended, loud normoactive bowel sounds audible in all 4 quadrants. MUSC: Left leg is in lauri wrap + knee immobilizer and propped on a pillow. There are no signs of infection/irritation. Pedal pulses palpable bilaterally. No edema/erythema. Unable to assess muscle strength/ROM at this time. NEURO: Unable to assess at this time. Results Results: Laboratory Tests 08/28/17 0625: Urine Opiates Screen 222.00, Methadone Screen < 40, Barbiturate Screen < 60, Ur Phencyclidine Scrn < 6.00, Amphetamines Screen < 100, U Benzodiazepines Scrn > 800 H, Urine Cocaine Screen < 50, Urine Cannabis Screen < 5.00 08/27/17 2332: Anion Gap 10, Estimated GFR > 60, BUN/Creatinine Ratio 10.9, Phosphorus 3.5, Magnesium 2.0, TSH 0.716, CBC w Diff NO MAN DIFF REQ, RBC 3.48 L, MCV 90.6, MCH 30.8, RDW 12.7, MPV 8.7, Gran % 73.0, Lymphocytes % 19.1 L, Monocytes % 5.6, Eosinophils % 1.6, Basophils % 0.7, Absolute Granulocytes 4.8, Absolute Lymphocytes 1.2, Absolute Monocytes 0.4, Absolute Eosinophils 0.1, Absolute Basophils 0, PUBS MCHC 34.0 Assessment/Plan Assessment: Kit is a 72yo Caucasain male post op day 1 s/p left quad tendon repair. He is very drowsy likely 2/2 to pain medications and uncooperative as he continues to fall asleep during the exam and refusing to answer questions. Pt will be assessed later in the day. No complaints vocalized at this time. Plan: Re-assess pt later this am. Continue pain meds PRN Regular diet. PT consult. Efra Luke 08/28/17 0903: Resident Review Statement Resident Statement: examined this patient, amended to note, please see my note from same day. Joe Jimenez PA-C
[2017-08-28 08:32] LABS: ABSOLUTE BASOPHIL COUNT 0 /CUMM (0.0-0.2); ABSOLUTE EOSINOPHIL COUNT 0.1 /CUMM (0.0-0.7); ABSOLUTE GRANULOCYTE CT 4.3 /CUMM (1.4-6.5); ABSOLUTE LYMPH COUNT 1.2 /CUMM (1.2-3.4); ABSOLUTE MONOCYTE COUNT 0.6 /CUMM (0.10-0.60); BASOPHIL % 0.3 % (0.0-2.0); EOSINOPHIL % 1.5 % (0-5); GRANULOCYTE % 69.6 % (42.2-75.2); HEMATOCRIT 30.9 % (42-52); MEAN CORPUSCULAR HGB 31.8 PG (27.0-31.0); MEAN CORPUSCULAR HGB CONC 34.7 G/DL (33.0-37.0); MEAN CORPUSCULAR VOLUME 91.7 FL (80.0-94.0); MEAN PLATELET VOLUME 8.7 FL (7.4-10.4); PLATELET COUNT 232 /CUMM (130-400); RED BLOOD CELL CT 3.36 /CUMM (4.70-6.10); WHITE BLOOD CELL COUNT 6.2 /CUMM (4.8-10.8)
[2017-08-28 10:41] VITALS: BP 120/56
--- NOTE | 2017-08-28 11:38 | Cons- Psychiatry ---
See Addendum Psychiatric Consult Date of Consult: 08/28/17 Reason for Consult: "Hallucination/delirium" History of Present Illness: 72 M S/P left quad tendon repair on 08/27/17. The patient had anesthesia for this surgery and was noted to be delirious with hallucinations afterward. He has a history of alcohol abuse, consisting of 4-5 beers per day. He reports that he would normally drink 2-3 beers daily, but has been self-medicating for pain. He is also being followed by pain management, and is on Percocet 10/325 mg #88 for 22 days on 07/17/17. Other recent med claims: Ropinirole 2 mg #60/30 on 07/13/17 Trazodone 50 mg #30/30 on 07/04/[address] Jean, PCP\\ Mirtazapine 15 mg #30/30 on 07/04/17 by PCP Zolpidem 5 mg 06/04/17 Lexapro 20 mg 05/29/17 Allergies: Coded Allergies: bee venom protein (honey bee) (UNKNOWN 11/28/16) Current Medications: Current Medications Sig/Reina Start time Last Medication Dose Route Stop Time Status Admin Acetaminophen 650 MG Q4P PRN 08/27 2299 AC PO Aspirin 325 MG BID 08/27 2199 AC 08/28 PO 1036 Cefazolin Sodium 2 GM IQ8 08/28 0000 DC 08/28 N/A 1 UNIT IV 08/28 0829 0817 Cefazolin Sodium 1,000 MG ONCE 08/27 0000 DC IV 08/27 2359 Dextrose/Sodium 1,000 ML .[id number] 08/27 230 DC 08/27 Chloride IV 2306 Docusate Sodium 100 MG BID 08/27 220 AC 08/28 PO 1036 Doxazosin Mesylate 2 MG QPM 08/28 2200 AC PO Doxazosin Mesylate 2 MG QPM 08/27 2200 DC 08/27 PO 2218 Fentanyl Citrate 200 MCG .STK-MED ONE 08/27 1527 DC IM 08/27 1528 Fentanyl Citrate 100 MCG .STK-MED ONE 08/27 1248 DC IM 08/27 1249 Furosemide 40 MG 0730,1630 08/28 0730 DC PO Furosemide 40 MG 0730,1630 08/28 0730 AC 08/28 PO 0618 Hydromorphone HCl 2 MG .STK-MED ONE 08/27 1757 DC IM 08/27 1758 Lorazepam 0 Q1P PRN 08/27 2014 AC IV Midazolam HCl 2 MG .STK-MED ONE 08/27 1249 DC IM 08/27 1250 Morphine Sulfate 2 MG Q2P PRN 08/27 2300 AC IV Omeprazole 20 MG DAILY 08/28 1000 DC PO Omeprazole 20 MG DAILY 08/28 1000 AC 08/28 PO 1036 Ondansetron HCl 4 MG Q6P PRN 08/27 230 AC IV Oxycodone HCl 10 MG Q4 HRS NEEDED PRN 08/27 2300 AC 08/28 PO 0620 Oxycodone HCl 15 MG Q4 HRS NEEDED PRN 08/27 2300 AC 08/28 PO 1036 Polyethylene Glycol 17 GM DAILY NEEDED PRN 08/27 230 AC PO Ropinirole HCl 4 MG AT BEDTIME 08/28 220 AC PO Ropinirole HCl 4 MG AT BEDTIME 08/27 2200 DC 08/27 PO 2218 Ropivacaine 500 ML ONCE ONE 08/27 1400 DC ON-Q Ball 1 BAG INJ 08/29 1559 Spironolactone 25 MG DAILY 08/28 1000 DC PO Spironolactone 25 MG DAILY 08/28 1000 AC 08/28 PO 1036 Tamsulosin HCl 0.4 MG DAILY 08/28 1000 AC 08/28 PO 1037 Tamsulosin HCl 0.4 MG DAILY 08/27 1745 DC 08/27 PO 2218 Trazodone HCl 50 MG QPM 08/28 2200 AC PO Trazodone HCl 50 MG QPM 08/27 2200 DC 08/27 PO 2218 Past History Past Medical History Neurological: CVA 2013 (MILD R-SIDED WEAKNESS PER PT) EENT: NONE Cardiovascular: hyperlipidemia, HTN Respiratory: NONE Gastrointestinal: constipation, GERD, GASTRIC ULCER Hepatic: NONE Renal: NONE Musculoskeletal: osteoarthritis Psychiatric: Patient denies history, but has had Rx recently for escitalopram, mirtazapine and trazodone, all antidepressants., Probable alcohol use d/o Endocrine: NONE Blood Disorders: NONE Cancer(s): NONE 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 Psychiatric Treatment History Psych Treatment Psychiatric Treatment No (Denies) Diagnosis: R/O F23.9 Major depressive disorder R/O Alcohol use d/o Risk Factors: age (under 24/over 65), substance abuse, male Substance Use/Abuse History Drug Use/Abuse Substances Used/Abused Yes Substance Used/Abused Alcohol First Use Not evaluated Last Used MATTE CUTTER How much used/taken 4-5 beers How often Daily For how long Unclear Substance Abuse Treatment Substance Abuse Treatment Past Substance Abuse [place] No (Denies) Assessment/Plan Mental Status Orientation: Person, place, day, year, off by one date, off by 4 months (November); easily re-oriented. Affect: WNL Speech: WNL Neuro-vegetative: Helpless, Sleep Disturbance Mental Status Exam: Alert, reports pain is 10/10, but willing to be interviewed. Orientation, as above. Denies AH, VH and presents no rajiv delusions. He thinks he was confused after surgery yesterday, 2/2 pain in left leg. He denies psychiatric treatment diagnosis, treatment or hospitalization. He denies family psychiatric history. He scales depression as 6-7/10, most of which would go away if he could walk and participate in life at home with his spouse, Luz, of 36 years. "It bothers me to sit around." He endorses helplessness, worthlessness, some hopelessness but denies guilt. He denies anxiety. He reports continued bereavement for his [id number], who 4-5 years ago. He is a [place] of the [place] era, and lost his 3 best friends, Nilesh, Jared and Kirby, whom he grew up with. He denies suicidal or homicidal ideation. He feels safe in the hospital, reports he slept well last night, and that his appetite is good. Lab Results: Laboratory Tests 08/28 08/28 0730 0625 Chemistry Sodium (137 - 145 mmol/L) 142 Potassium (3.5 - 5.1 mmol/L) 4.2 Chloride (98 - 107 mmol/L) 106 Carbon Dioxide (22 - 30 mmol/L) 24 Anion Gap (5 - 16) 11 BUN (9 - 20 mg/dL) 14 Creatinine (0.7 - 1.2 mg/dL) 1.0 Estimated GFR (>60 ml/min) > 60 BUN/Creatinine Ratio (7 - 25 %) 14.0 Hematology CBC w Diff NO MAN DIFF REQ WBC (4.8 - 10.8 /CUMM) 6.2 RBC (4.70 - 6.10 /CUMM) 3.36 L Hgb (14.0 - 18.0 G/DL) 10.7 L Hct (42 - 52 %) 30.9 L MCV (80.0 - 94.0 FL) 91.7 MCH (27.0 - 31.0 PG) 31.8 H RDW (11.5 - 14.5 %) 13.0 Plt Count (130 - 400 /CUMM) 232 MPV (7.4 - 10.4 FL) 8.7 Gran % (42.2 - 75.2 %) 69.6 Lymphocytes % (20.5 - 51.1 %) 18.8 L Monocytes % (1.7 - 9.3 %) 9.8 H Eosinophils % (0 - 5 %) 1.5 Basophils % (0.0 - 2.0 %) 0.3 Absolute Granulocytes (1.4 - 6.5 /CUMM) 4.3 Absolute Lymphocytes (1.2 - 3.4 /CUMM) 1.2 Absolute Monocytes (0.10 - 0.60 /CUMM) 0.6 Absolute Eosinophils (0.0 - 0.7 /CUMM) 0.1 Absolute Basophils (0.0 - 0.2 /CUMM) 0 PUBS MCHC (33.0 - 37.0 G/DL) 34.7 Toxicology Urine Opiates Screen (>2000 NG/ML) 222.00 Methadone Screen (>300 NG/ML) < 40 Barbiturate Screen (>200 NG/ML) < 60 Ur Phencyclidine Scrn (>25 NG/ML) < 6.00 Amphetamines Screen (>1000 NG/ML) < 100 U Benzodiazepines Scrn (>200 NG/ML) > 800 H Urine Cocaine Screen (>300 NG/ML) < 50 Urine Cannabis Screen (>50 NG/ML) < 5.00 /08 2332 Chemistry Sodium (137 - 145 mmol/L) 143 Potassium (3.5 - 5.1 mmol/L) 3.9 Chloride (98 - 107 mmol/L) 107 Carbon Dioxide (22 - 30 mmol/L) 26 Anion Gap (5 - 16) 10 BUN (9 - 20 mg/dL) 12 Creatinine (0.7 - 1.2 mg/dL) 1.1 Estimated GFR (>60 ml/min) > 60 BUN/Creatinine Ratio (7 - 25 %) 10.9 Phosphorus (2.5 - 4.5 mg/dL) 3.5 Magnesium (1.6 - 2.3 mg/dL) 2.0 TSH (0.270 - 4.200 uIU/mL) 0.716 Hematology CBC w Diff NO MAN DIFF REQ WBC (4.8 - 10.8 /CUMM) 6.5 RBC (4.70 - 6.10 /CUMM) 3.48 L Hgb (14.0 - 18.0 G/DL) 10.7 L Hct (42 - 52 %) 31.5 L MCV (80.0 - 94.0 FL) 90.6 MCH (27.0 - 31.0 PG) 30.8 RDW (11.5 - 14.5 %) 12.7 Plt Count (130 - 400 /CUMM) 253 MPV (7.4 - 10.4 FL) 8.7 Gran % (42.2 - 75.2 %) 73.0 Lymphocytes % (20.5 - 51.1 %) 19.1 L Monocytes % (1.7 - 9.3 %) 5.6 Eosinophils % (0 - 5 %) 1.6 Basophils % (0.0 - 2.0 %) 0.7 Absolute Granulocytes (1.4 - 6.5 /CUMM) 4.8 Absolute Lymphocytes (1.2 - 3.4 /CUMM) 1.2 Absolute Monocytes (0.10 - 0.60 /CUMM) 0.4 Absolute Eosinophils (0.0 - 0.7 /CUMM) 0.1 Absolute Basophils (0.0 - 0.2 /CUMM) 0 PUBS MCHC (33.0 - 37.0 G/DL) 34.0 Diffential Diagnosis: F32.9 Major depressive d/o, unspec. Alcohol use d/o, moderate Dysfunctional bereavement Impression: The patient reports an episode of sleep walking ("My found me outside."), is not sure what sleep aid he was taking, but med claim shows Rx for Ambien in May,. He also reports a vivid dream of his [id number] a few nights before his surgery. He denies any confusion today, and his delirium has likely resolved. We feel that the patient would benefit from IOP, or, at a [facility], outpatient psychiatry, which he is not opposing at this time. He lives at home with his , Luz, for the last 36 years. they have no children. 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 He is a [place] . Provisional Treatment Plan: 1. Do not restart Ambien, due to sleep walking report. 2. Minimize delirium triggers. 3. Intensive outpatient program (IOP) after discharge from rehab. 4. If delirium returns, please work-up a reversible dementia screen. We will continue to follow along with you.
[2017-08-28 14:13] VITALS: BP 114/58
--- NOTE | 2017-08-28 15:41 | PN- Att Addend ---
Attending Addendum Attending Brief Note Follow-up medical consult. Patient seen and examined. Overnight he appears to have done okay with no more hallucinations. He is afebrile at 98, blood pressure is 115/70, pulse is 76 and breathing at 16-18. He is awake and alert. Lungs are clear to auscultation, heart is S1-S2 regular, abdomen is soft nontender, lower extremity is dressed. Labs reviewed and are normal. He is a 72-year-old with a past medical history of BPH, hypertension, hyperlipidemia, peripheral vascular disease, previous CVA was here status post left quadriceps tendon repair. Medicine was consulted for delirium. He was seen by psych as well and appreciate psych follow-up, who is recommending outpatient follow-up. At this point we're trying to minimize delirium triggers, he doesn't have any evidence of active alcohol withdrawal and doesn't have a history of withdrawal in the past so will monitor that. He will likely need rehabilitation for orthopedics and will need to follow-up.
[2017-08-28 22:17] VITALS: BP 120/58
[2017-08-29 07:15] VITALS: BP 116/58
--- NOTE | 2017-08-29 07:30 | PN- Orthopedic ---
See Addendum Subjective Subjective: no events overnight. no fever, no nv, no cp/sob. Pain is controlled Objective Vital Signs and I&Os Vital Signs Date Time Temp Pulse Resp B/P B/P Pulse O2 O2 Flow FiO2 Mean Ox Delivery Rate 08/29 0715 98.4 76 18 116/58 94 08/28 2217 98.6 92 19 120/58 95 Room Air 08/28 1439 Room Air 08/28 1413 98.2 81 20 114/58 92 Room Air 08/28 1041 98.0 83 20 120/56 93 Room Air 08/28 1037 84 134/68 Intake & Output 08/29 0800 08/29 0000 08/28 1600 08/28 0800 08/28 0000 08/27 1600 Intake Total 120 960 650 740 240 Output Total 600 520 490 500 200 Balance -480 440 160 240 40 Intake, IV 150 500 Intake, Oral 120 960 500 240 240 Number 0 Bowel Movements Output, Urine 600 520 490 500 200 Patient 160 lb 160 lb Weight Weight Reported by Patient Measurement Method Physical Exam: Well-developed well-nourished no apparent distress. HEENT: Atraumatic, extraocular motion intact Neck: Supple, no lymphadenopathy Respiratory: No respiratory distress Extremities: No edema LEFT lower extremity dressing in place, Incision line is clean dry. No signs of infection. Minimal swelling, staple line intact Compression wrap in place. Knee immobilizer in place Neurovascularly intact distally Bilateral calves are supple, nontender. Neuro: Alert and oriented x3 Psych: Mood affect normal, normal memory normal judgment. Skin: Warm and dry, no rash on exposed skin Assessment/Plan Assessment/Plan Postop day 2 status post left knee quadriceps tendon repair secondary to rupture from fall 6 weeks postop left total knee arthroplasty prn pain meds diet as tolerated asa 325bid pt, ttwb knee immobilizer at all times dressing changed today, dsd daily medicine following Discharge planning to intermediate facility when bed available Core Measures Venous Thromboembolism VTE Risk Factors Surgery No Mechanical VTE Prophylaxis d/t N/A MechProphylax Ordered No VTE Pharm Prophylaxis d/t NA PharmProphylax ordered
--- NOTE | 2017-08-29 07:55 | Admission Core Measures ---
Acute Coronary Syndrome (CM) ACS Core Measures Acute Coronary Syndrome Diagnosis No Congestive Heart Failure (NEW) CHF Core Measures Congestive Heart Failure Diagnosis No Cerebrovascular Accident (NEW) CVA Core Measures CVA/TIA Diagnosis No Venous Thromboembolism VTE Core Kathie (View Protocol) VTE Risk Factors Surgery No Mechanical VTE Prophylaxis d/t N/A MechProphylax Ordered No VTE Pharm Prophylaxis d/t NA PharmProphylax ordered Problem List As ranked by this Provider includes Assessment & Plan 1. Quadriceps tendon rupture HOME MEDS Home Med List Apixaban (Eliquis) 2.5 MG TABLET 2.5 MG PO BID DVT PROPHYLAXSIS Bisacodyl (Dulcolax) 5 MG TABLET.DR 2 TAB PO ONCE CONSTIPATION (Reported) Carisoprodol (SOMA) 350 MG TABLET 350 MG PO TID PRN SPASMS Doxazosin Mesylate (Cardura) 2 MG TABLET 1 TAB PO QPM HTN (Reported) Ferrous Sulfate 325 MG (65 MG IRON) TABLET 1 TAB PO DAILY PRE OP (Reported) Furosemide 40 MG TABLET 1 TAB PO BID EDEMA (Reported) Hydromorphone HCl 2 MG TABLET 1-2 TAB PO Q4P PRN PAIN Mirtazapine 15 MG TABLET 1 TAB PO QPM SLEEP (Reported) Omeprazole 20 MG CAPSULE.DR 1 CAP PO DAILY GERD (Reported) Ropinirole HCl (Requip) 4 MG TABLET 1 TAB PO QPM RESTLESS LEG SYNDROME ( Reported) Simvastatin (Simvastatin*) 20 MG TABLET 1 TAB PO QPM CHOLESTEROL (Reported) Spironolactone 25 MG TABLET 1 TAB PO DAILY EDEMA (Reported) Tamsulosin HCl (Flomax) 0.4 MG CAP.ER.24H 1 CAP PO DAILY BPH (Reported) Trazodone HCl 50 MG TABLET 1 TAB PO QPM SLEEP (Reported)
--- NOTE | 2017-08-29 08:00 | Surgical Discharge Summary ---
Visit Information Visit Dates Admission Date: 08/27/17 Discharge Date: 08/30/17 History of Present Illness Chief Complaint: L knee quadriceps tendon rupture Medical History Blood Transfusion Hx: No Neurological: CVA 2013 (MILD R-SIDED WEAKNESS PER PT) EENT: NONE Cardiovascular: hyperlipidemia, HTN Respiratory: NONE Gastrointestinal: constipation, GERD, GASTRIC ULCER Hepatic: NONE Renal: NONE Musculoskeletal: osteoarthritis Psychiatric: Patient denies history, but has had Rx recently for escitalopram, mirtazapine and trazodone, all antidepressants. 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 Spouse What is Your Primary Language? Croatian Review of Systems: see [facility] Hospital Course Course Attending Physician: Beverly FREEMAN,[facility] Primary Care Physician: Ted FREEMAN,[facility] Hospital Course: Patient is 6 weeks status post left knee total knee arthroplasty secondary to osteoarthritis with a fall occurred rupturing his quadriceps tendon and he required a repair of the quadriceps tendon. Surgery went without complications. Patient's postoperative course was Complicated by delirium. Medical consult and psychiatric consult was ordered, patient does have history of alcohol abuse. The delirium resolved shortly and his postoperative course was unremarkable. He is toe-touch weightbearing left lower extremity, knee immobilizer in place, wound looks good, no signs of infection, he is tolerating regular diet pain is controlled, he has been struggling with physical therapy and requires [facility] facility. Pt stayed in house an extra night awaiting insurance approval for rehab and was discharged on 08/30/2017. Complications: delerium-resolved Allergies: Coded Allergies: bee venom protein (honey bee) (UNKNOWN 11/28/16) Significant Procedures: See operative report Disposition Summary Disposition Principal Diagnosis: Left knee quadriceps tendon rupture status post quad tendon repair Additional Diagnosis: Status post total knee arthroplasty 6 weeks ago, postoperative delirium, history of GERD, hypertension, BPH, HDL, alcohol abuse Discharge Disposition: SNF Discharge Instructions General Discharge Information Code Status: Full Code Patient's Diet: Regular Patient's Activity: Toe-touch weightbearing left lower extremity, knee immobilizer on at all times Follow-Up Instructions/Appts: 10-14 days postop with surgeon Medications at Discharge Discharge Medications: Stop taking the following medications: Carisoprodol (SOMA) 350 MG TABLET ORAL THREE TIMES DAILY as needed for SPASMS Qty = 30 Apixaban (Eliquis) 2.5 MG TABLET ORAL TWICE DAILY Qty = 60 Hydromorphone HCl (Hydromorphone HCl) 2 MG TABLET ORAL EVERY 4 HOURS NEEDED as needed for PAIN Qty = 36 Continue taking these medications: Ropinirole HCl (Requip) 4 MG TABLET 1 Tablet ORAL Every night Comments: Last Taken: 08/28/17 Time: 1820 Furosemide (Furosemide) 40 MG TABLET 1 Tablet ORAL TWICE DAILY Comments: Last Taken: 08/29/17 Time: 633 Omeprazole (Omeprazole) 20 MG CAPSULE.DR 1 Capsule ORAL DAILY Comments: Last Taken: 08/29/17 Time: 919 Simvastatin (Simvastatin*) 20 MG TABLET 1 Tablet ORAL Every night Comments: Last Taken: NOT GIVEN DURING THIS ADMISSION Time: Doxazosin Mesylate (Cardura) 2 MG TABLET 1 Tablet ORAL Every night Comments: Last Taken: 08/28/17 Time: 2099 Mirtazapine (Mirtazapine) 15 MG TABLET 1 Tablet ORAL Every night Comments: NOT TAKEN IN HOSPITAL Spironolactone (Spironolactone) 25 MG TABLET 1 Tablet ORAL DAILY Comments: Last Taken: 08/29/17 Time: 918 Trazodone HCl (Trazodone HCl) 50 MG TABLET 1 Tablet ORAL Every night Comments: LAST TAKEN: 08/28/17 TIME: 2106 Tamsulosin HCl (Flomax) 0.4 MG CAP.ER.24H 1 Capsule ORAL DAILY Comments: Last Taken: 08/29/17 Time: 918 Ferrous Sulfate (Ferrous Sulfate) 325 MG (65 MG IRON) TABLET 1 Tablet ORAL DAILY Comments: Last Taken: NOT GIVEN DURING THIS ADMISSION Time: Bisacodyl (Dulcolax) 5 MG TABLET.DR 2 Tablet ORAL GIVE ONCE Comments: Last Taken: NOT GIVEN DURING THIS ADMISSION TIME: Start taking the following new medications: Aspirin (Aspirin*) 325 MG TABLET 325 Milligram ORAL TWICE DAILY Qty = 60 No Refills Comments: Last Taken: 08/29/17 Time: 918 Docusate Sodium (Docusate Sodium) 100 MG CAPSULE 100 Milligram ORAL TWICE DAILY as needed for CONSTIPATION Qty = 20 No Refills Comments: Last Taken: 08/29/17 Time: 0920 Oxycodone HCl (Oxycodone HCl) 10 MG TABLET 10 Milligram ORAL EVERY 4 HOURS NEEDED as needed for PAIN Qty = 30 No Refills Comments: 15MG Last Taken: 08/29/17 Time: 9560
[2017-08-29] MEDS ORDERED: DOCUSATE SODIU100 M3 PO (08:03)
[2017-08-29] MEDS ORDERED: OXYCODONE HCL10 M2 PO (08:03)
[2017-08-29] MEDS ORDERED: ASPIRIN325 M2 PO (08:03)
--- NOTE | 2017-08-29 08:06 | Patient Discharge Instructions ---
Discharge Instructions General Discharge Information You were seen/treated for: Left knee quadriceps tendon rupture status post left total knee arthroplasty You had these procedures: Quadriceps tendon repair Watch for these problems: Worsening redness, swelling, pain, fever, drainage from the wound, inability left leg or extend the knee Call Surgeon to remove: [place] ([id number]) Do not soak the wound: Yes No bath, but you may shower: Yes Other wound care: Dry sterile dressing daily Special Instructions: Toe-touch weightbearing left lower extremity. Knee immobilizer on at all times except when bathing, no knee range of motion with therapy Patient was seen postoperatively by psychiatry for delirium and it was recommended that patient: 1. Do not restart Ambien, due to sleep walking report. 2. Minimize delirium triggers. 3. Intensive outpatient program (IOP) after discharge from rehab. 4. If delirium returns, please work-up a reversible dementia screen. Diet Continue normal diet: Yes Activity Full Activity/No Limits: No Activity Self Limited: Yes Other activity limits: TOE TOUCH WEIGHT BEARING Acute Coronary Syndrome Inclusion Criteria At DC or during hospital stay patient has or had the following: ACS DIAGNOSIS No Discharge Core Measures Meds if any: Prescribed or Continued at Discharge Meds if any: NOT Prescribed or Continued at Discharge Congestive Heart Failure Inclusion Criteria At DC or during hospital stay patient has or had the following: CHF DIAGNOSIS No Discharge Core Measures Meds if any: Prescribed or Continued at Discharge Meds if any: NOT Prescribed or Continued at Discharge Cerebrovascular accident Inclusion Criteria At DC or during hospital stay patient has or had the following: CVA/TIA Diagnosis No Discharge Core Measures Meds if any: Prescribed or Continued at Discharge Meds if any: NOT Prescribed or Continued at Discharge Venous thromboembolism Inclusion Criteria VTE Diagnosis No VTE Type NONE VTE Confirmed by (Test) NONE Discharge Core Measures - Per Current guidelines, there needs to be overlap - treatment for the first 5 days of Warfarin therapy. - If discharged on Warfarin prior to 5 days of - overlap therapy, the patient will need to be - assessed for post discharge needs including - *Post discharge parental anticoagulation - *Warfarin and/or parental anticoagulation education - *Follow up date to check INR post discharge At least 5 days overlap therapy as Inpatient No Meds if any: Prescribed or Continued at Discharge Note: Overlap Therapy is Warfarin and Anticoagulant Meds if any: NOT Prescribed or Continued at Discharge
[2017-08-29 14:17] VITALS: BP 124/70
[2017-08-29 15:08] VITALS: BP 124/70
[2017-08-29 22:12] VITALS: BP 107/53
[2017-08-30 06:35] VITALS: BP 104/54
--- NOTE | 2017-08-30 08:37 | PN- Orthopedic ---
Subjective Subjective: Patient comfortable, pain is better every day, no complaints Objective Vital Signs and I&Os Vital Signs Date Time Temp Pulse Resp B/P B/P Pulse O2 O2 Flow FiO2 Mean Ox Delivery Rate 08/30 0635 98.5 68 20 104/54 93 08/29 2212 98.7 78 20 107/53 95 Room Air 08/29 1508 98.3 75 20 124/70 08/29 1417 98.3 75 20 124/70 94 Room Air 08/29 0919 120/64 Intake & Output 08/30 1600 08/30 0000 08/29 1600 08/29 0808/29 0000 Intake Total 480 360 600 120 960 Output Total 500 425 470 600 520 Balance -20 -65 130 -480 440 Intake, IV 0 Intake, Oral 480 360 600 120 960 Number 0 Bowel Movements Output, Urine 500 425 470 600 520 Physical Exam: Well-developed well-nourished no apparent distress. HEENT: Atraumatic, extraocular motion intact Neck: Supple, no lymphadenopathy Respiratory: No respiratory distress Extremities: No edema LEFT lower extremity dressing in place, Incision line is clean dry and intact w No signs of infection. Mild joint effusion knee imobilizer in place. ALPS in place Neurovascularly intact distally Bilateral calves are supple, nontender. Neuro: Alert and oriented x3 Psych: Mood affect normal, normal memory normal judgment. 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 Continue DVT prophylaxis with aspirin, toe-touch weightbearing, knee immobilizer, daily dressing changes. Core Measures Venous Thromboembolism VTE Risk Factors Surgery No Mechanical VTE Prophylaxis d/t N/A MechProphylax Ordered No VTE Pharm Prophylaxis d/t NA PharmProphylax ordered
[2017-08-30 11:08] VITALS: BP 124/70
[2017-08-30 13:42] VITALS: BP 110/62
== END 2017-08-30 13:50 | DRG 501 ==
LOC: STS 12:49 → PACUH 17:09 → ENRESERV 18:45 → ENTRNSPT 19:48 → CMPTRNSPT 20:07 → 2NB 08-28 11:54 → ENPENDDIS 08-29 16:12 → EDPENDDISTM 08-30 09:31 → EDPENDDISDT 08-30 09:31 → 2NB 08-30 13:50
PROVIDERS: Physician Assistant Surgical; Student in an Organized Health Care Education/Training Program
PROC: 0LQM0ZZ Repair Left Upper Leg Tendon, Open Approach (ICD-10-PCS; principal; 2017-08-27)
DX: S76.112A Strain of left quadriceps muscle, fascia and tendon, initial encounter (principal); I69.351 Hemiplegia and hemiparesis following cerebral infarction affecting right dominant side; F10.10 Alcohol abuse, uncomplicated; R44.1 Visual hallucinations; G25.81 Restless legs syndrome; R41.82 Altered mental status, unspecified; T40.605A Adverse effect of unspecified narcotics, initial encounter; Y92.239 Unspecified place in hospital as the place of occurrence of the external cause; F32.9 Major depressive disorder, single episode, unspecified; F43.21 Adjustment disorder with depressed mood; I73.9 Peripheral vascular disease, unspecified; I10 Essential (primary) hypertension; E78.5 Hyperlipidemia, unspecified; Z86.73 Personal history of transient ischemic attack (TIA), and cerebral infarction without residual deficits
CPT/HCPCS: 2NBSP; ERO; 36415; 80307; 82436; 97110-GO; 97110-GP; 97116-GO; 97161-GP; 97530-GO; G8978-GP; G8979-GP; J0690; J2795